=== PATIENT | male | born 1970 | race Caucasian/White ===

== ENCOUNTER 2019-08-08 21:30 | Emergency (ER) | payer OTHER ==
[~2019-08-08] VITALS: Ht 182.9 cm; Wt 90.7 kg
--- NOTE | 2019-08-08 21:50 | NUR ---
Pt bib RA 102 for ALOC and ETOH intoxication. Pt in custody and here to be medically cleared to book. [employer] # [id number] at bedside. Upon arrival, pt is belligerent towards staff and refusing to answer questions. Safe environment implemented. Pt placed on monitor. VSS.
[2019-08-08] MEDS ORDERED: HALOPERIDOL LACTATE 5 MG/1 ML VIAL IM ONE (22:00)
[2019-08-08 22:03] LABS: BASOPHILS % (AUTO) 0.3 % (0.0-2.0); EOSINOPHILS # (AUTO) 0.3 K/uL (0.0-0.7); EOSINOPHILS % (AUTO) 2.4 % (0.0-7.0); HEMATOCRIT 44.3 % (36.7-47.1); HEMOGLOBIN 15.1 g/dL (12.5-16.3); LYMPHOCYTES # (AUTO) 5.9 K/uL (20.0-40.0); LYMPHOCYTES % (AUTO) 44.2 % (20.5-51.5); MEAN CORPUSCULAR HEMOGLOBIN 30.6 uug (23.8-33.4); MEAN CORPUSCULAR HGB CONC 34 g/dL (32.5-36.3); MEAN CORPUSCULAR VOLUME 89.9 fL (73.0-96.2); MONOCYTES # (AUTO) 0.8 K/uL (2.0-10.0); MONOCYTES % (AUTO) 5.9 % (0.0-11.0); NEUTROPHILS # (AUTO) 6.3 K/uL (1.8-8.9); NEUTROPHILS % (AUTO) 47.2 % (38.5-71.5); PLATELET COUNT (AUTO) 269 K/uL (152-348); RED BLOOD CELL COUNT(AUTO) 4.93 MIL/uL (4.06-5.63); WHITE BLOOD COUNT (AUTO) 13.4 K/uL (3.6-10.2)
[2019-08-08 22:08] LABS: CARBON DIOXIDE 23 mmol/L (21-32); CHLORIDE 105 mmol/L (98-107); GLUCOSE 140 mg/dL (74-106); POTASSIUM 3.4 mmol/L (3.5-5.1); UREA NITROGEN, BLOOD 9 mg/dL (7-18)
[2019-08-08 22:14] LABS: ALANINE AMINOTRANSFERASE 29 U/L (16-63); ALKALINE PHOSPHATASE 60 U/L (50-136); ASPARTATE AMINOTRANSFERASE 22 U/L (15-37); BILIRUBIN,DIRECT 0.1 mg/dL (0.0-0.2); BILIRUBIN,TOTAL 0.3 mg/dL (0.2-1.0); TOTAL PROTEIN, SERUM 7.4 g/dL (6.4-8.2)
[2019-08-08 22:16] LABS: ACETAMINOPHEN < 10.0 ug/mL (10-30)
[2019-08-08 22:32] LABS: ETHANOL 360 MG/DL (0-0)
[2019-08-08 22:36] LABS: THYROID STIMULATING HORMONE 1.508 mIU/mL (0.358-3.740)
--- NOTE | 2019-08-08 23:25 | NUR ---
Patient medically cleared and okay to book per ER MD. Patient in custody and discharged with [employer] #[id number]. Written and verbal after care instructions given. Patient in no acute distress, patient escorted out of ER with [employer].
[2019-08-08 23:36] VITALS: BP 129/78
== END 2019-08-08 23:25 ==
LOC: ER 21:30
DX: F10.129 Alcohol abuse with intoxication, unspecified (principal); Y90.8 Blood alcohol level of 240 mg/100 ml or more
CPT/HCPCS: 36415; 80048; 80076; 84443; 85025; 93005; 99284; G0480 ×2; G0481; A4663